=== PATIENT | female | born 1965 | race Caucasian/White ===

== ENCOUNTER → 2023-01-19 | Outpatient (CLI) | payer OTHER, SELFPAY ==
--- NOTE | 2023-01-19 13:07 | BI_ITS ---
MAMMOGRAPHY - BILATERAL SCREENING REASON FOR EXAM: Female, 57 years old. Routine annual screening examination. PERTINENT HISTORY: Grandmother with breast cancer. History of bilateral breast implants. TECHNIQUE: Digital bilateral breast rigoberto (3D mammographic acquisition) in the CC and MLO projections. 2-D mediolateral oblique (MLO) and craniocaudad (CC) views of both breasts were obtained. CAD: Full Field Digital Mammography with Computer Added Detection was performed. COMPARISON: Comparison is made with prior outside examination August 27, 2019 FINDINGS: Breast Composition: The breasts are heterogeneously dense, which may obscure small masses. There are no dominant masses or suspicious calcifications. Stable appearance of the bilateral breast implants. No other significant abnormalities are identified. There has been no significant change since the prior study. BI/SCRN MAMM (CAD)W/RIGOBERTO BILAT IMPRESSION: Stable bilateral screening mammogram. Yearly follow-up mammogram recommended. (A) ASSESSMENT CATEGORY: BIRADS Category 2: Benign. A letter regarding these results will be sent to the patient by the facility within 30 days. Approximately 10% of breast cancers are not detected by mammography. A normal mammogram should not delay biopsy of a clinically suspicious abnormality. [id number] Electronically Signed: Brayden Villatoro MD at 8:32 EDT ,
== END | disposition home or self-care (01) ==
LOC: OPBI 13:04
PROVIDERS: PCP Family Medicine; Referring Provider Family Medicine; Visit Provider Family Medicine
DX: Z12.31 Encounter for screening mammogram for malignant neoplasm of breast (principal)
CPT/HCPCS: 77063; 77067

== ENCOUNTER → 2025-08-28 | Outpatient (CLI) | payer OTHER, SELFPAY ==
--- NOTE | 2025-08-28 07:54 | BI_ITS ---
EXAM: SCRN MAMM (CAD)W/RIGOBERTO BILAT DATE: 08/28/2025 CLINICAL HISTORY: F, Age 60 y/o , SCREENING Grandmother with breast cancer. Bilateral breast implants. TECHNIQUE: Procedure Code: [id number] Modality: MG Procedure: SCRN MAMM (CAD)W/RIGOBERTO BILAT COMPARISON: Prior exam(s) dated January 19, 2023.. FINDINGS: TISSUE DENSITY: The breasts are heterogeneously dense, which may obscure small masses. Bilateral Breast Mammographic Findings: No significant masses, calcifications or other abnormalities are identified. Stable appearance of the bilateral breast implants. No suspicious masses, areas of developing architectural distortion, or suspicious calcifications. There has been no significant interval change. BI/SCRN MAMM (CAD)W/RIGOBERTO BILAT IMPRESSION: Stable bilateral screening mammogram. OVERALL FINAL ASSESSMENT BI-RADS 2: BENIGN RECOMMENDATION: Routine annual follow-up in 1 Year Additional Recommendation none A letter with findings and recommendations will be mailed to the patient. Reading Location: [place] [id number]
--- NOTE | 2025-08-28 07:54 | BI_ITS ---
EXAM: SCRN MAMM (CAD)W/RIGOBERTO BILAT DATE: 08/28/2025 CLINICAL HISTORY: F, Age 60 y/o , SCREENING Grandmother with breast cancer. Bilateral breast implants. TECHNIQUE: Procedure Code: [id number] Modality: MG Procedure: SCRN MAMM (CAD)W/RIGOBERTO BILAT COMPARISON: Prior exam(s) dated January 19, 2023.. FINDINGS: TISSUE DENSITY: The breasts are heterogeneously dense, which may obscure small masses. Bilateral Breast Mammographic Findings: No significant masses, calcifications or other abnormalities are identified. Stable appearance of the bilateral breast implants. No suspicious masses, areas of developing architectural distortion, or suspicious calcifications. There has been no significant interval change. BI/SCRN MAMM (CAD)W/RIGOBERTO BILAT IMPRESSION: Stable bilateral screening mammogram. OVERALL FINAL ASSESSMENT BI-RADS 2: BENIGN RECOMMENDATION: Routine annual follow-up in 1 Year Additional Recommendation none A letter with findings and recommendations will be mailed to the patient. Reading Location: [place] [id number]
--- OUTSIDE RECORDS SUMMARY | 2025-08-28 08:13 | XMS RPT_ITS | CCD ---
Author Organization [facility] Inform ion Partnership [facility] Care Team Providers Care Ruby Developer Name Role Phone COLEEN DEE Attending Unav ailKushal Maravilla Referring Unavailable Kushal Akhtar Attending Unavailable Kushal Akhtar Primary Care Unavailable Problems Problem Classification Problem Date Documented Da te Episodic/Chronic Other screening for suspected conditions (not mental disorders or infectious disease) (1 source) Encounter for screening mammogram for malignant neoplasm of breast; Translations: [Encounter for screening mammogram for malignant neoplasm of breast] Onset: 08-13-2025 Episodic Results Test Name Value Interpretation Reference Range Facility CBC (INCLUDES DIFF/PLT)on Basophils (Bld) [#/Vol] 0.042 10*3/uL Normal 0-200 [facility] Comment on above: Performed By: #### 1 0231, 5509, 3290 #### [facility] [place] [address] Multifocal Button Generator: Aly Butt MD Basophils/100 WBC (Bld) 0.7 % Normal [facility] Comment on above: Performed By: #### 1 023, 3556, 7122 #### [facility] [place] [address] Multifocal Button Generator: Aly Butt MD Eosinophils (Bld) [#/Vol] 0.132 10*3/uL Normal 15-500 [facility] Comment on above: Performed By: #### 1 023, 0287, 3798 #### [facility] [place] [address] Multifocal Button Generator: Aly Butt MD Eosinophils/100 WBC (Bld) 2.2 % Normal [facility] Comment on above: Performed By: #### 1 0231, 63, 7600 #### [facility] of [place] [address] Multifocal Button Generator: Aly Butt MD Erythrocyte distribution width (RBC) [Ratio] 13.3 % Normal 11.0-15.0 [facility] Comment on above: Performed By: #### 1 0231, 63, 7600 #### [facility] [place] [address] Multifocal Button Generator: Aly Butt MD Hematocrit (Bld) [Volume fraction] 42.7 % Normal 35.0-45.0 [facility] Comment on above: Performed By: #### 1 0231, 63, 7600 #### [facility] [place] [address] Multifocal Button Generator: Aly Butt MD Hemoglobin (Bld) [Mass/Vol] 13.4 g/dL Normal 11.7-15.5 [facility] Comment on above: Performed By: #### 1 023, 63, 7600 #### [facility] [place] [address] Multifocal Button Generator: Aly Butt MD Lymphocytes (Bld) [#/Vol] 1.83 10*3/uL Normal 850-3900 [facility] Comment on above: Performed By: #### 1 023, 63, 7600 #### [facility] [place] [address] Multifocal Button Generator: Aly Butt MD Lymphocytes/100 WBC (Bld) 30.5 % Normal [facility] Comment on above: Performed By: #### 1 0231, 63, 7600 #### [facility] [place] [address] Multifocal Button Generator: Aly Butt MD MCH (RBC) [Entitic mass] 30.4 pg Normal 27.0-33.0 [facility] Comment on above: Performed By: #### 1 0231, 63, 7600 #### [facility] [place] [address] Multifocal Button Generator: Aly Butt MD MCHC (RBC) [Mass/Vol] 31.4 g/dL Low 32.0-36.0 [facility] Comment on above: Result Comment: For adults, a slight decrease in the calculated MCHC value (in the range of 30 to 32 g/dL) is most likely not clinically significant; however, it should be interpreted with caution in correlation with other red cell parameters and the patient's clinical condition. Performed By: #### 1 023, 63, 7600 #### [facility] [place] [address] Multifocal Button Generator: Aly Butt MD MCV (RBC) [Entitic vol] 96.8 fL Normal 80.0-100.0 [facility] Comment on above: Performed By: #### 1 230, 63, 0 #### [facility] [place] [address] Multifocal Button Generator: Aly Butt MD Monocytes (Bld) [#/Vol] 0.486 10*3/uL Normal 200-950 [facility] Comment on above: Performed By: #### 1 230, 63, 7600 #### [facility] [place] [address] Multifocal Button Generator: Aly Butt MD Monocytes/100 WBC (Bld) 8.1 % Normal [facility] Comment on above: Performed By: #### 1 023, 63, 7600 #### [facility] [place] [address] Multifocal Button Generator: Aly Butt MD Neutrophils (Bld) [#/Vol] 3.51 10*3/uL Normal 8854-1383 [facility] Comment on above: Performed By: #### 1 023, 63, 7600 #### [facility] [place] [address] Multifocal Button Generator: Aly Butt MD Neutrophils/100 WBC (Bld) 58.5 % Normal [facility] Comment on above: Performed By: #### 1 0231, 6399, 7600 #### [facility] [place] [address] Multifocal Button Generator: Aly Butt MD Platelet mean volume (Bld) [Entitic vol] 9.6 fL Normal 7.5-12.5 [facility] Comment on above: Performed By: #### 1 0231, 6399, 7600 #### [facility] of [address], [address] [place] [address] Multifocal Button Generator: Aly Butt MD Platelets (Bld) [#/Vol] 253 10*3/uL Normal 140-400 [facility] Comment on above: Performed By: #### 1 0231, 63, 7600 #### [facility] [place] [address] Multifocal Button Generator: Aly Butt MD RBC (Bld) [#/Vol] 4.41 10*6/uL Normal 3.80-5.10 [facility] Comment on above: Performed By: #### 1 0231, 63, 7600 #### [facility] [place] [address] Multifocal Button Generator: Aly Butt MD WBC (Bld) [#/Vol] 6.0 10*3/uL Normal 3.8-10.8 [facility] Comment on above: Performed By: #### 1 0231, 6399, 7600 #### [facility] [place] [address] Multifocal Button Generator: Aly Butt MD [facility] 07-03-2025 Albumin [Mass/Vol] 4.4 g/dL Normal 3.6-5.1 [facility] Comment on above: Performed By: #### 1 0231, 6399, 7600 #### [facility] [place] [address] Multifocal Button Generator: Aly Butt MD Albumin/Globulin [Mass ratio] 1.8 {ratio} Normal 1.0-2.5 [facility] Comment on above: Performed By: #### 1 0231, 6399, 7600 #### [facility] of [address], [address] [place] [address] Multifocal Button Generator: Aly Butt MD ALP [Catalytic activity/Vol] 61 U/L Normal 37-153 [facility] Comment on above: Performed By: #### 1 0231, 63, 7600 #### [facility] of [address], [address] [place] [address] Multifocal Button Generator: Aly Butt MD ALT [Catalytic activity/Vol] 14 U/L Normal 6-29 [facility] Comment on above: Performed By: #### 1 0231, 63, 7600 #### [facility] of [address], [address] [place] [address] Multifocal Button Generator: Aly Butt MD AST [Catalytic activity/Vol] 29 U/L Normal 10-35 [facility] Comment on above: Performed By: #### 1 0231, 63, 7600 #### [facility] [place] [address] Multifocal Button Generator: Aly Butt MD Bilirubin [Mass/Vol] 0.4 mg/dL Normal 0.2-1.2 [facility] Comment on above: Performed By: #### 1 0231, 63, 7600 #### [facility] [place] [address] Multifocal Button Generator: Aly Butt MD BUN/CREATININE RATIO SEE NOTE: Normal 6-22 [facility] Comment on above: Result Comment: Not Reported: BUN and Creatinine are within reference range. Performed By: #### 1 0231, 6399, 7600 #### [facility] [place] [address] Multifocal Button Generator: Aly Butt MD Calcium [Mass/Vol] 9.7 mg/dL Normal 8.6-10.4 [facility] Comment on above: Performed By: #### 1 0231, 63, 7600 #### [facility] [place] [address] Multifocal Button Generator: Aly Butt MD Chloride [Moles/Vol] 105 mmol/L Normal 98-110 [facility] Comment on above: Performed By: #### 1 0231, 63, 7600 #### [facility] [place] [address] Multifocal Button Generator: Aly Butt MD CO2 [Moles/Vol] 26 mmol/L Normal 20-32 [facility] Comment on above: Performed By: #### 1 0231, 63, 7600 #### [facility] [place] [address] Multifocal Button Generator: Aly Butt MD Creatinine [Mass/Vol] 0.83 mg/dL Normal 0.50-1.03 [facility] Comment on above: Performed By: #### 1 0231, 63, 7600 #### [facility] [place] [address] Multifocal Button Generator: Aly Butt MD GFR/1.73 sq M.predicted among non-blacks MDRD (S/P/Bld) [Vol rate/Area] 82 mL/min/{1.73_m2} Normal > OR = 60 [facility] Comment on above: Performed By: #### 1 0231, 63, 7600 #### [facility] [place] [address] Multifocal Button Generator: Aly Butt MD Globulin (S) [Mass/Vol] 2.4 g/dL Normal 1.9-3.7 [facility] Comment on above: Performed By: #### 1 0231, 6399, 7600 #### [facility] [place] [address] Multifocal Button Generator: Aly Butt MD Glucose [Mass/Vol] 101 mg/dL High 65-99 [facility] Comment on above: Result Comment: Fasting reference interval For someone without known diabetes, a glucose value between 100 and 125 mg/dL is consistent with prediabetes and should be confirmed with a follow-up test. Performed By: #### 1 0231, 63, 7600 #### [facility] [address], [address] [place] [address] Multifocal Button Generator: Aly Butt MD Potassium [Moles/Vol] 4.9 mmol/L Normal 3.5-5.3 [facility] Comment on above: Performed By: #### 1 0231, 63, 7600 #### [facility] [place] [address] Multifocal Button Generator: Aly Butt MD Protein [Mass/Vol] 6.8 g/dL Normal 6.1-8.1 [facility] Comment on above: Performed By: #### 1 0231, 63, 7600 #### [facility] [place] [address] Multifocal Button Generator: Aly Butt MD Sodium [Moles/Vol] 141 mmol/L Normal 135-146 [facility] Comment on above: Performed By: #### 1 0231, 63, 7600 #### [facility] [place] [address] Multifocal Button Generator: Aly Butt MD Urea nitrogen [Mass/Vol] 17 mg/dL Normal 7-25 [facility] Comment on above: Performed By: #### 1 0231, 63, 7600 #### [facility] [place] [address] Multifocal Button Generator: Aly Butt MD LIPID PANEL, [facility] 06-14 Cholesterol [Mass/Vol] 220 mg/dL High <200 [facility] Comment on above: Order Comment: FASTI NG:YES FASTING: YES Performed By: #### 1 0231, 6399, 7600 #### [facility] [place] [address] Multifocal Button Generator: Aly Butt MD Cholesterol in HDL [Mass/Vol] 108 mg/dL Normal > OR = 50 [facility] Comment on above: Order Comment: FASTI NG:YES FASTING: YES Performed By: #### 1 0231, 1274, 0770 #### [facility] [address], [address] [place] [address] Multifocal Button Generator: Aly Butt MD Cholesterol in LDL [Mass/Vol] 98 mg/dL Normal [facility] Comment on above: Order Comment: FASTI NG:YES FASTING: YES Result Comment: Refe rence range: <100 Desirable range <100 mg/dL for primary prevention; <70 mg/dL for patients with CHD or diabetic patients with > or = 2 CHD risk factors. LDL-C is now calculated using the Capo calculation, which is a validated novel method providing better accuracy than the Friedewald equation in the estimation of LDL-C. Javier SMITH et al. USHA. 2013;310(19): 0928-1177 (http://education.YouFetch.Million Dollar Earth/faq/VLB775) Performed By: #### 1 0231, 6599, 1870 #### [facility] [address], [address] [place] [address] Multifocal Button Generator: Aly Butt MD Cholesterol.total/C holesterol in HDL [Mass ratio] 2.0 {ratio} Normal <5.0 [facility] Comment on above: Order Comment: FASTI NG:YES FASTING: YES Performed By: #### 1 0231, 3769, 9340 #### [facility] [address], [address] [place] [address] Multifocal Button Generator: Aly Butt MD NON HDL CHOLESTEROL 112 mg/dL (calc) Normal <130 [facility] Comment on above: Order Comment: FASTI NG:YES FASTING: YES Result Comment: For patients with diabetes plus 1 major ASCVD risk factor, treating to a non-HDL-C goal of <100 mg/dL (LDL-C of <70 mg/dL) is considered a therapeutic option. Performed By: #### 1 0231, 8599, 6510 #### [facility] [address], [address] [place] [address] Multifocal Button Generator: Aly Butt MD Triglyceride [Mass/Vol] 54 mg/dL Normal <150 [facility] Comment on above: Order Comment: FASTI NG:YES FASTING: YES Performed By: #### 1 0231, 6278, 4640 #### [facility] [address], [address] [place] [address] Multifocal Button Generator: Aly Butt MD CNNURSEon 03-31-2021 [facility] Nurse Visit (COVAMD) DAFNE TAVAREZ ([id number]) 1965 F Date Time Provider Department 03/31/21 1:15 PM COVID VACCINE [facility] During your visit today, we recorded the following information about you: Referring Provider: SOURAV GOLD JR [[id number]] Allergies As of Date: 03/31/2021 Noted Allergy Reaction PENICILLINS 12/09/2008 Comments: Patient states that when she used Penicillin her throat, mouth, and stomached burned. She was told by a physician that she should probably not use Penicillin. Date Reviewed: 02/02/2017 Reviewed by: Raoul Garcia - Fully Assessed Order(s):[facility] SARS-COV-2 VACCINE 2D DOSE APPT [[id number]] Order #: [id number] [facility] COVID-19 VACCINE [98490PXO] Order #: [id number] Prescriptions as of 03/31/2021 Sig: BUPROPION HCL ORAL Take 8 mg by mouth once daily* AUGMENTIN ORAL Take by mouth. DIAZEPAM 5 MG TABLET Take 1 tablet by mouth every * * DEXLANSOPRAZOLE 60 MG CAPSULE* Take 1 capsule by mouth once * Problem List As Of Date 03/31/2021 Noted Resolved Smoker [F17.200] 02/10/2016 Cervical stenosis of spine [M48.02] GERD (gastroesophageal reflux disease) [K21.9] Insomnia [G47.00] IBS (irritable bowel syndrome) [K58.9] Encounter Status:Closed by CLOSURE [employer], ADMINISTRATIVE on 04/01/21 [facility] CNNURSEon 03-10-2021 [facility] Nurse Visit (COVAMD) DAFNE TAVAREZ ([id number]) 1965 F Date Time Provider Department 03/10/21 1:15 PM COVID VACCINE [place] [facility]OV[facility] During your visit today, we recorded the following information about you: Referring Provider: SOURAV GOLD JR [[id number]] Allergies As of Date: 03/10/2021 Noted Allergy Reaction PENICILLINS 12/09/2008 Comments: Patient states that when she used Penicillin her throat, mouth, and stomached burned. She was told by a physician that she should probably not use Penicillin. Date Reviewed: 02/02/2017 Reviewed by: Raoul Garcia - Fully Assessed Order(s):[facility] COUNTS INCLUDE 234 BEDS AT THE [facility] COVID-19 VACCINE [[id number]] Order #: [id number] [facility] SARS-COV-2 VACCINE 2D DOSE APPT [[id number]] Order #: [id number] FUTURE Prescriptions as of 03/10/2021 Sig: BUPROPION HCL ORAL Take 8 mg by mouth once daily* AUGMENTIN ORAL Take by mouth. DIAZEPAM 5 MG TABLET Take 1 tablet by mouth every * * DEXLANSOPRAZOLE 60 MG CAPSULE* Take 1 capsule by mouth once * Problem List As Of Date 03/10/2021 Noted Resolved Smoker [F17.200] 02/10/2016 Cervical stenosis of spine [M48.02] GERD (gastroesophageal reflux disease) [K21.9] Insomnia [G47.00] IBS (irritable bowel syndrome) [K58.9] Encounter Status:Closed by CLOSURE [employer], ADMINISTRATIVE on 03/11/21 [facility] Initial Visit (Orthopaedic S urgery)on 05-18-2020 Initial Visit (Orthopaedic Surgery) Chief Complaint NPV for degenerative disc. -MM History of Present [id number] female with chief complaint of left leg pain. She has some lower back pain but the left leg bothers her much worse. The pain radiates down her thigh and occasionally goes below the knee. It began about 4 or 5 years ago. She has not had any formal treatment. She smokes a half a pack of cigarettes a day. She is otherwise in fairly good health. Review of Systems I reviewed the complete 30-point review of systems that was documented on the scanned patient intake form. All other systems are non-contributory except as defined in history of present illness. Active Problems Low back pain (724.2) (M54.5) Allergies No Known Drug Allergies Recorded By: Carlene Vasquez; 05/18/2020 11:45:45 AM Physical Exam Const: Well-appearing, well-nourished female in no distress. Eyes: Normal appearing sclera and conjunctiva, no jaundice, pupils normal in appearance. Resp: breathing comfortably, normal respiratory rate. CV: No upper or lower extremity edema. Musculoskeletal: Normal gait. Lumbar ROM is supple. Strength exam of the lower extremities reveals 5/5 strength in all major muscle groups. Negative straight leg raise bilaterally. Neuro: Sensation is intact and equal bilaterally. Deep tendon reflexes are normal and symmetric. No clonus. Skin: Intact without any lesions, normal turgor. Psych: Alert and oriented x3, normal mood and affect. Results/Data I personally reviewed a report of an MRI that she brought with her. This shows possible foraminal stenosis at L5-S1. Diagnoses/Problems Low back pain (724.2) (M54.5) Orders Low back pain Start: Meloxicam 15 MG Oral Tablet; TAKE 1 TABLET DAILY Rx By: Johnson Godoy; Dispense: 30 Days ; #:30 Tablet; Refill: 3;For: Low back pain; ROSALIND = N; Verified Transmission to [facility] [facility]; Last Updated By: Sherman Barragan; 05/18/2020 11:46:53 AM Physical Therapy - General Referral Evaluation and Treatment Evaluate AND Treat Status: Hold For - Scheduling,Retrospect jena Authorization Requested for: [id number] Ordered;For: Low back pain; Ordered By: Johnson Godoy Performed: Due: [id number]; Last Updated By: Carlene Vasquez; 05/18/2020 11:43:37 AM Provider Impressions 55-year-old female with foraminal stenosis and radicular pain. She has not had any formal treatment. I recommended smoking cessation first and foremost. In the meantime I started her on a course of physical therapy and gave her a prescription for meloxicam 15 mg daily. If she does not improve with these measures she should return to see me with a copy of her MRI on a disc. This note was dictated using speech recognition software and was not corrected for spelling or grammatical errors Signatures Electronically signed by : Johnson Godoy, ; May 27 2020 3:08PM EST (Author) [facility] [employer] ALLIED HEALTHon 04-24-2020 ALLIED HEALTH HNO ID: [id number] Author: Abigail Dangelo) Mary May Service: Radiology Author Type: Truck Jumper Type: [facility] Filed: 04/24/2020 3:51 PM Note Text: Radiology Service Progress Note PATIENT NAME: Dafne Tavarez DATE OF SERVICE: April 24, 2020 TIME: 3:51 PM PATIENT IDENTITY VERIFICATION COMPLETED USING TWO (2) IDENTIFIERS: Name and Date of confirmed by patient verbally and Name and Date of confirmed by identification band. FALL SCREENING: Has the patient had 2 falls in the last year or 1 fall with injury or currently using an Ambulatory Assistive Device (Walker, Cane, Wheelchair, Crutches, etc.)? No PATIENT GENDER DATA: Female. status: : No status: NO. PATIENT RELEVANT IMPLANT DATA REVIEWED: Yes RADIOLOGY DEPARTMENT: MR; Exam(s) Completed: Spine: Lumbar spine PERIPHERAL IV DATA: Not applicable SIGNED BY: DEYANIRA Tim April 24, 2020 3:51 PM [facility] MRI LUMBAR SPINE WO IVCONon 04-24-2020 MRI LUMBAR SPINE WO IVCON * * *Final Report* * * DATE OF EXAM: Apr 24 2020 4:37PM [facility] 0303 - MRI LUMBAR SPINE WO IVCON / PROCEDURE REASON: radiculopathy * * * * Physician Interpretation * * * * COMPARISON: 11/05/2015. HISTORY: Lumbar radiculopathy. TECHNIQUE: MRI lumbar spine without contrast. MQ: [id number] RESULT: MRI LUMBAR SPINE: Acute abnormality: None. Normal alignment, vertebral body height, marrow signal, central canal, thecal sac, spinal cord signal/caliber and cauda equina. No fracture/dislocation. Normal soft tissues. Intervertebral disks are decreased in height/signal with minimal posterior bulges and disc osteophyte indicating disc degeneration. No acute spine disease. T12 -- L1: Patent central canal. Patent bilateral neural foramina. L1 -- 2: Diffuse disc bulge with left paracentral annular tear and small protrusion. Patent central canal and neural foramen. L2 -- 3: Patent central canal. Patent bilateral neural foramina. L3 -- 4: Joint and disc degeneration. Patent central canal. Bilateral neural foraminal encroachment. L4 -- 5: Joint and disc degeneration. Patent central canal. Bilateral neural foraminal encroachment. L5 -- S1: Joint and disc degeneration. Right paracentral annular tear and small broad-based protrusion encroaching into subarticular recess without narrowing it Patent central canal. Bilateral neural foraminal encroachment. IMPRESSION: Stable mild lumbar spondylosis without canal or foraminal disease. COUNTING REFERENCE: Inferior most lumbar disc is taken as L5-S1. Structural anomalies: None. Electric Freight Car Operator: PSCB Transcribe Date/Time: Apr 24 2020 4:45P Dictated by : MACHO SMITH MD This examination was interpreted and the report reviewed and electronically signed by: MACHO SMITH MD on Apr 24 2020 4:49PM EST [id number] Normal [facility] Encounters Encounter Date Encounter Type Care Provider Facility Start: 08-28-2025 ambulatory Kushal Aranda ty:[facility] Start: 03-13-2023 End: 03-14-2023 ambulatory COLEEN MCGUIRE MD-DMD Facility:[id number] Start: 01-19-2023 End: 01-19-2023 ambulatory [facility] Work Phone: Start: 01-19-2023 End: 01-19-2023 Patient encounter procedure [facility]-Outpatient Breast Imaging Procedures Date Procedure Procedure Detail Performing Clinician Start: 09-14-2020 Follow-up visit Plan of Treatment Date Care Activity Detail Author Start: 01-19-2023 MG Breast - bilatera l Screening [facility] Start: 01-19-2023 Screening mammography SCRN MARKUS M (CAD)W/RIGOBERTO BILAT [facility] Payers Date Payer Category Payer Unknown [id number] 2008 Self-pay 1965 Unknown [id number] Private Health Insurance [facility] [id number] Unknown [id number] Social History Date Type Detail Facility Tobacco smoking stat [facility] Unknown if ever smoked [facility] Work Phone: Start: 1965 Sex Assigned At Female [facility] Evaluation note Note Date & Type Note Facility Evaluation note No assessment information availa ble [facility] Work Phone: Summary Purpose Family History No Family History Records FoundNo Family History Records FoundNo Family History Records FoundNo Family History Records FoundNo Family History Records Found Advance Directives No Advanced Directives Records FoundNo Advanced Directives Records FoundNo Advanced Directives Records FoundNo Advanced Directives Records FoundNo Advanced Directives Records Found Chief Complaint and Reason for Visit Chief Complaint SCREENING Additional Source Comments INFORMATION SOURCE (unrecogn ized section and content) DATE CREATED AUTHOR 09/16/2020 [employer] DATE CREATED AUTHOR AUTHOR'S ORGANIZ ATION 04/07/2021 [facility] DATE CREATED AUTHOR AUTHOR'S ORGANIZ ATION 03/14/2023 [facility] DATE CREATED AUTHOR AUTHOR'S ORGANIZ ATION 07/05/2025 [facility] DATE CREATED AUTHOR AUTHOR'S ORGANIZ ATION 08/18/2025 [facility] Care Teams (unrecognized sec tion and content) Team Status: Active Member Role Status Dates Dr. Kylie Hill MD Family Provider Active Dr. Kushal Akhtar MD Primary Care Provider Active Team Status: Inactive Member Role Status Dates Dr. Kushal Akhtar MD Primary Care P raysa, Attending Provider, Referring Provider Active Goals (unrecognized section and content) Goals may be documented in a n alternate section FOR RECORDS PERTAINING TO PATIENTS WHO ARE OR HAVE BEEN ENROLLED IN A CHEMICAL DEPENDENCY/SUBSTANCEABUSE PROGRAM, SOME INFORMATION MAY BE OMITTED. This clinical summary was aggregated from multiple sources. Caution should be exercised in using it in the provision of clinical care. This summary normalizes information from multiple sources, and as a consequence, information in this document may materially change the coding, format and clinical context of patient data. In addition, data may be omitted in some cases. CLINICAL DECISIONS SHOULD BE BASED ON THE PRIMARY CLINICAL RECORDS. [facility] mydala [facility]. provides no warranty or guarantee of the accuracy or completeness of information in this document.
--- OUTSIDE RECORDS SUMMARY | 2025-08-28 08:13 | XMS RPT_ITS | CCD ---
Author Organization [facility] Inform ion Partnership [facility] Care Team Providers Care Orthodontic Technician Name Role Phone COLEEN DEE Attending Unav [...] on above: Performed By: #### 1 0231, 7082, 3934 #### [facility] [place] [address] Asset Protection Detective: Aly Butt MD Basophils/100 WBC (Bld) 0.7 % Normal [facility] Comment on above: Performed By: #### 1 023, 9511, 4803 #### [facility] [place] [address] Asset Protection Detective: Aly Butt MD Eosinophils (Bld) [#/Vol] 0.132 10*3/uL Normal 15-500 [facility] Comment on above: Performed By: #### 1 023, 9272, 7210 #### [facility] [place] [address] Asset Protection Detective: Aly Butt MD Eosinophils/100 WBC (Bld) 2.2 % Normal [facility] Comment on above: Performed By: #### 1 0231, 63, 7600 #### [facility] of [place] [address] Asset Protection Detective: Aly Butt MD Erythrocyte distribution width (RBC) [Ratio] 13.3 % Normal 11.0-15.0 [facility] Comment on above: Performed By: #### 1 0231, 63, 7600 #### [facility] [place] [address] Asset Protection Detective: Aly Butt MD Hematocrit (Bld) [Volume fraction] 42.7 % Normal 35.0-45.0 [facility] Comment on above: Performed By: #### 1 0231, 63, 7600 #### [facility] [place] [address] Asset Protection Detective: Aly Butt MD Hemoglobin (Bld) [Mass/Vol] 13.4 g/dL Normal 11.7-15.5 [facility] Comment on above: Performed By: #### 1 023, 63, 7600 #### [facility] [place] [address] Asset Protection Detective: Aly Butt MD Lymphocytes (Bld) [#/Vol] 1.83 10*3/uL Normal 850-3900 [facility] Comment on above: Performed By: #### 1 023, 63, 7600 #### [facility] [place] [address] Asset Protection Detective: Aly Butt MD Lymphocytes/100 WBC (Bld) 30.5 % Normal [facility] Comment on above: Performed By: #### 1 0231, 63, 7600 #### [facility] [place] [address] Asset Protection Detective: Aly Butt MD MCH (RBC) [Entitic mass] 30.4 pg Normal 27.0-33.0 [facility] Comment on above: Performed By: #### 1 0231, 63, 7600 #### [facility] [place] [address] Asset Protection Detective: Aly Butt MD MCHC (RBC) [Mass/Vol] 31.4 [...] 023, 63, 7600 #### [facility] [place] [address] Asset Protection Detective: Aly Butt MD MCV (RBC) [Entitic vol] 96.8 fL Normal 80.0-100.0 [facility] Comment on above: Performed By: #### 1 230, 63, 0 #### [facility] [place] [address] Asset Protection Detective: Aly Butt MD Monocytes (Bld) [#/Vol] 0.486 10*3/uL Normal 200-950 [facility] Comment on above: Performed By: #### 1 230, 63, 7600 #### [facility] [place] [address] Asset Protection Detective: Aly Butt MD Monocytes/100 WBC (Bld) 8.1 % Normal [facility] Comment on above: Performed By: #### 1 023, 63, 7600 #### [facility] [place] [address] Asset Protection Detective: Aly Butt MD Neutrophils (Bld) [#/Vol] 3.51 10*3/uL Normal 6355-0907 [facility] Comment on above: Performed By: #### 1 023, 63, 7600 #### [facility] [place] [address] Asset Protection Detective: Aly Butt MD Neutrophils/100 WBC (Bld) 58.5 % Normal [facility] Comment on above: Performed By: #### 1 0231, 6399, 7600 #### [facility] [place] [address] Asset Protection Detective: Aly Butt MD Platelet mean volume (Bld) [Entitic vol] 9.6 fL Normal 7.5-12.5 [facility] Comment on above: Performed By: #### 1 0231, 6399, 7600 #### [facility] of [address], [address] [place] [address] Asset Protection Detective: Aly Butt MD Platelets (Bld) [#/Vol] 253 10*3/uL Normal 140-400 [facility] Comment on above: Performed By: #### 1 0231, 63, 7600 #### [facility] [place] [address] Asset Protection Detective: Aly Butt MD RBC (Bld) [#/Vol] 4.41 10*6/uL Normal 3.80-5.10 [facility] Comment on above: Performed By: #### 1 0231, 63, 7600 #### [facility] [place] [address] Asset Protection Detective: Aly Butt MD WBC (Bld) [#/Vol] 6.0 10*3/uL Normal 3.8-10.8 [facility] Comment on above: Performed By: #### 1 0231, 6399, 7600 #### [facility] [place] [address] Asset Protection Detective: Aly Butt MD [facility] 07-03-2025 Albumin [Mass/Vol] 4.4 g/dL Normal 3.6-5.1 [facility] Comment on above: Performed By: #### 1 0231, 6399, 7600 #### [facility] [place] [address] Asset Protection Detective: Aly Butt MD Albumin/Globulin [Mass ratio] 1.8 {ratio} Normal 1.0-2.5 [facility] Comment on above: Performed By: #### 1 0231, 6399, 7600 #### [facility] of [address], [address] [place] [address] Asset Protection Detective: Aly Butt MD ALP [Catalytic activity/Vol] 61 U/L Normal 37-153 [facility] Comment on above: Performed By: #### 1 0231, 63, 7600 #### [facility] of [address], [address] [place] [address] Asset Protection Detective: Aly Butt MD ALT [Catalytic activity/Vol] 14 U/L Normal 6-29 [facility] Comment on above: Performed By: #### 1 0231, 63, 7600 #### [facility] of [address], [address] [place] [address] Asset Protection Detective: Aly Butt MD AST [Catalytic activity/Vol] 29 U/L Normal 10-35 [facility] Comment on above: Performed By: #### 1 0231, 63, 7600 #### [facility] [place] [address] Asset Protection Detective: Aly Butt MD Bilirubin [Mass/Vol] 0.4 mg/dL Normal 0.2-1.2 [facility] Comment on above: Performed By: #### 1 0231, 63, 7600 #### [facility] [place] [address] Asset Protection Detective: Aly Butt MD BUN/CREATININE RATIO SEE NOTE: Normal 6-22 [facility] Comment on above: Result Comment: Not Reported: BUN and Creatinine are within reference range. Performed By: #### 1 0231, 6399, 7600 #### [facility] [place] [address] Asset Protection Detective: Aly Butt MD Calcium [Mass/Vol] 9.7 mg/dL Normal 8.6-10.4 [facility] Comment on above: Performed By: #### 1 0231, 63, 7600 #### [facility] [place] [address] Asset Protection Detective: Aly Butt MD Chloride [Moles/Vol] 105 mmol/L Normal 98-110 [facility] Comment on above: Performed By: #### 1 0231, 63, 7600 #### [facility] [place] [address] Asset Protection Detective: Aly Butt MD CO2 [Moles/Vol] 26 mmol/L Normal 20-32 [facility] Comment on above: Performed By: #### 1 0231, 63, 7600 #### [facility] [place] [address] Asset Protection Detective: Aly Butt MD Creatinine [Mass/Vol] 0.83 mg/dL Normal 0.50-1.03 [facility] Comment on above: Performed By: #### 1 0231, 63, 7600 #### [facility] [place] [address] Asset Protection Detective: Aly Butt MD GFR/1.73 sq M.predicted among non-blacks MDRD (S/P/Bld) [Vol rate/Area] 82 mL/min/{1.73_m2} Normal > OR = 60 [facility] Comment on above: Performed By: #### 1 0231, 63, 7600 #### [facility] [place] [address] Asset Protection Detective: Aly Butt MD Globulin (S) [Mass/Vol] 2.4 g/dL Normal 1.9-3.7 [facility] Comment on above: Performed By: #### 1 0231, 6399, 7600 #### [facility] [place] [address] Asset Protection Detective: Aly Butt MD Glucose [Mass/Vol] 101 mg/dL High 65-99 [facility] Comment on above: Result Comment: Fasting reference interval For someone without known diabetes, a glucose value between 100 and 125 mg/dL is consistent with prediabetes and should be confirmed with a follow-up test. Performed By: #### 1 0231, 63, 7600 #### [facility] [address], [address] [place] [address] Asset Protection Detective: Aly Butt MD Potassium [Moles/Vol] 4.9 mmol/L Normal 3.5-5.3 [facility] Comment on above: Performed By: #### 1 0231, 63, 7600 #### [facility] [place] [address] Asset Protection Detective: Aly Butt MD Protein [Mass/Vol] 6.8 g/dL Normal 6.1-8.1 [facility] Comment on above: Performed By: #### 1 0231, 63, 7600 #### [facility] [place] [address] Asset Protection Detective: Aly Butt MD Sodium [Moles/Vol] 141 mmol/L Normal 135-146 [facility] Comment on above: Performed By: #### 1 0231, 63, 7600 #### [facility] [place] [address] Asset Protection Detective: Aly Butt MD Urea nitrogen [Mass/Vol] 17 mg/dL Normal 7-25 [facility] Comment on above: Performed By: #### 1 0231, 63, 7600 #### [facility] [place] [address] Asset Protection Detective: Aly Butt MD LIPID PANEL, [facility] 06-14 Cholesterol [Mass/Vol] 220 mg/dL High <200 [facility] Comment on above: Order Comment: FASTI NG:YES FASTING: YES Performed By: #### 1 0231, 6399, 7600 #### [facility] [place] [address] Asset Protection Detective: Aly Butt MD Cholesterol in HDL [Mass/Vol] 108 mg/dL Normal > OR = 50 [facility] Comment on above: Order Comment: FASTI NG:YES FASTING: YES Performed By: #### 1 0231, 6711, 6770 #### [facility] [address], [address] [place] [address] Asset Protection Detective: Aly Butt MD Cholesterol in LDL [Mass/Vol] 98 mg/dL Normal [facility] Comment on above: Order Comment: FASTI NG:YES FASTING: YES Result Comment: Refe rence range: <100 Desirable range <100 mg/dL for primary prevention; <70 mg/dL for patients with CHD or diabetic patients with > or = 2 CHD risk factors. LDL-C is now calculated using the aCpo calculation, which is a validated novel method providing better accuracy than the Friedewald equation in the estimation of LDL-C. Javier SMITH et al. USHA. 2013;310(19): 7898-9419 (http://education.[employer]/faq/STZ182) Performed By: #### 1 0231, 6025, 8170 #### [facility] [address], [address] [place] [address] Asset Protection Detective: Aly Butt MD Cholesterol.total/C holesterol in HDL [Mass ratio] 2.0 {ratio} Normal <5.0 [facility] Comment on above: Order Comment: FASTI NG:YES FASTING: YES Performed By: #### 1 0231, 1338, 7840 #### [facility] [address], [address] [place] [address] Asset Protection Detective: Aly Butt MD NON HDL CHOLESTEROL 112 mg/dL (calc) Normal <130 [facility] Comment on above: Order Comment: FASTI NG:YES FASTING: YES Result Comment: For patients with diabetes plus 1 major ASCVD risk factor, treating to a non-HDL-C goal of <100 mg/dL (LDL-C of <70 mg/dL) is considered a therapeutic option. Performed By: #### 1 0231, 2484, 2390 #### [facility] [address], [address] [place] [address] Asset Protection Detective: Aly Butt MD Triglyceride [Mass/Vol] 54 mg/dL Normal <150 [facility] Comment on above: Order Comment: FASTI NG:YES FASTING: YES Performed By: #### 1 0231, 2143, 3970 #### [facility] [address], [address] [place] [address] Asset Protection Detective: Aly Butt MD CNNURSEon 03-31-2021 [facility] Nurse Visit (COVAMD) DAFNE TAVAREZ ([id number]) 1965 F Date Time Provider Department 03/31/21 1:[address] [facility] During your visit today, we recorded the following information about you: Referring Provider: SOURAV GOLD JR [[id number]] Allergies As of Date: 03/31/2021 Noted Allergy Reaction PENICILLINS 12/09/2008 Comments: Patient states that when she used Penicillin her throat, mouth, and stomached burned. She was told by a physician that she should probably not use Penicillin. Date Reviewed: 02/02/2017 Reviewed by: Raoul Garcia - Fully Assessed Order(s):[facility] SARS-COV-2 VACCINE 2D DOSE APPT [[id number]] Order #: [id number] [employer] [facility] COVID-19 VACCINE [[id number]] Order #: [id number] Prescriptions as of 03/31/2021 Sig: BUPROPION HCL [...] bowel syndrome) [K58.9] Encounter Status:Closed by CLOSURE [employer], ADMINISTRATIVE on 04/01/21 [facility] CNNURSEon 03-10-2021 [facility] Nurse Visit (COVAMD) DAFNE TAVAREZ ([id number]) 1965 F Date Time Provider Department 03/10/21 1:15 PM COVID VACCINE [facility]OV[facility] During your visit today, we recorded the following information about you: Referring Provider: SOURAV GOLD JR [[id number]] Allergies As of Date: 03/10/2021 Noted Allergy Reaction PENICILLINS 12/09/2008 Comments: Patient states that when she used Penicillin her throat, mouth, and stomached burned. She was told by a physician that she should probably not use Penicillin. Date Reviewed: 02/02/2017 Reviewed by: Raoul Garcia - Fully Assessed Order(s):[employer] [facility] COVID-19 VACCINE [[id number]] Order #: [id number] [facility] SARS-COV-2 VACCINE 2D DOSE APPT [[id number]] Order #: [id number] FUTURE Prescriptions as of 03/10/2021 Sig: BUPROPION [...] bowel syndrome) [K58.9] Encounter Status:Closed by CLOSURE [employer], ADMINISTRATIVE on 03/11/21 [facility] Initial Visit (Orthopaedic S urgery)on 05-18-2020 Initial Visit (Orthopaedic Surgery) Chief Complaint NPV for degenerative disc. -MM History of Present [id number] female with chief complaint of left leg [...] pain; ROSALIND = N; Verified Transmission to [facility] [facility]; Last Updated By: Sherman Barragan; 05/18/2020 11:46:53 AM Physical Therapy - General Referral Evaluation and Treatment Evaluate AND Treat Status: Hold For - Scheduling,Retrospect jena Authorization Requested for: [id number] Ordered;For: Low back pain; Ordered By: Johnson Godoy Performed: Due: [id number]; Last Updated By: Carlene Vasquez; 05/18/2020 11:43:37 [...] ; May 27 2020 3:08PM EST (Author) [facility] ALLIED HEALTHon 04-24-2020 ALLIED HEALTH HNO ID: [id number] Author: Abigail Dangelo) Mary May Service: Radiology Author Type: Cable Rigger Type: Allied Health Filed: 04/24/2020 3:51 PM [...] DEYANIRA Tim April 24, 2020 3:51 PM [facility] MRI LUMBAR SPINE WO IVCONon 04-24-2020 MRI LUMBAR SPINE WO IVCON * * *Final Report* * * DATE OF EXAM: Apr 24 2020 4:37PM [facility] 0303 - MRI LUMBAR SPINE WO IVCON [...] is taken as L5-S1. Structural anomalies: None. Gypsum Calciner: PSCB Transcribe Date/Time: Apr 24 2020 4:45P Dictated by : MACHO SMITH MD This examination was interpreted and the report reviewed and electronically signed by: MACHO SMITH MD on Apr 24 2020 4:49PM EST [id number] Normal [facility] Encounters Encounter Date Encounter Type Care Provider Facility Start: 08-28-2025 ambulatory Kushal Aranda ty:[facility] Start: 03-13-2023 End: 03-14-2023 ambulatory COLEEN MCGUIRE MD-DMD Facility:[id number] Start: 01-19-2023 End: 01-19-2023 ambulatory [facility] Work Phone: Start: 01-19-2023 End: 01-19-2023 Patient encounter procedure [facility]-Outpatient Breast Imaging Procedures Date Procedure Procedure Detail Performing Clinician Start: 09-14-2020 Follow-up visit Plan of Treatment Date Care Activity Detail Author Start: 01-19-2023 MG Breast - bilatera l Screening [facility] Start: 01-19-2023 Screening mammography SCRN MARKUS M (CAD)W/RIGOBERTO BILAT [facility] Payers Date Payer Category Payer Unknown [id number] 2008 Self-pay 1965 Unknown [id number] Private Health Insurance [facility] [id number] Unknown [id number] Social History Date Type Detail Facility Tobacco smoking stat [facility] Unknown if ever smoked [facility] Work Phone: Start: 1965 Sex Assigned At Female [facility] Evaluation note Note Date & Type Note Facility Evaluation note No assessment information availa ble [facility] Work Phone: Summary Purpose Family History [...] section and content) DATE CREATED AUTHOR 09/16/2020 [facility] DATE CREATED AUTHOR AUTHOR'S ORGANIZ ATION 04/07/2021 [facility] DATE CREATED AUTHOR AUTHOR'S ORGANIZ ATION 03/14/2023 [facility] DATE CREATED AUTHOR AUTHOR'S ORGANIZ ATION 07/05/2025 [facility] DATE CREATED AUTHOR AUTHOR'S ORGANIZ ATION 08/18/2025 [facility] Care Teams (unrecognized sec tion and [...] BE BASED ON THE PRIMARY CLINICAL RECORDS. [facility] [employer] [facility]. provides no warranty or guarantee of the accuracy or completeness of information in this document.
--- NOTE | 2025-08-28 08:49 | RAD_ITS ---
PROCEDURE: CERV SPINE 2 OR 3 VIEWS 08/28/2025 REASON FOR EXAM: CERVICALGIA TECHNIQUE: Procedure Code: RADSPCL Modality: DX Procedure: CERV SPINE 2 OR 3 VIEWS COMPARISON: None FINDINGS: ACDF fusion hardware is present from C5 through C7. There is mild to moderate C4-C5 degenerative change with mild anterior osteophytosis. Vertebral body heights are preserved. The prevertebral soft tissues are unremarkable. The facets are well aligned. C2 and C1-C2 articulations are intact. RAD/Cerv Spine 2 or 3 Views IMPRESSION: 1. Postsurgical changes from C5 through C7 ACDF. No acute osseous injury. Reading Location: [facility]
--- NOTE | 2025-08-28 08:49 | RAD_ITS ---
PROCEDURE: CERV SPINE 2 OR 3 VIEWS 08/28/2025 REASON FOR EXAM: CERVICALGIA TECHNIQUE: Procedure Code: RADSPCL Modality: DX Procedure: CERV SPINE 2 OR 3 VIEWS COMPARISON: None FINDINGS: ACDF fusion hardware is present from C5 through C7. There is mild to moderate C4-C5 degenerative change with mild anterior osteophytosis. Vertebral body heights are preserved. The prevertebral soft tissues are unremarkable. The facets are well aligned. C2 and C1-C2 articulations are intact. RAD/Cerv Spine 2 or 3 Views IMPRESSION: 1. Postsurgical changes from C5 through C7 ACDF. No acute osseous injury. Reading Location: [facility]
== END | disposition home or self-care (01) ==
PROVIDERS: PCP Family Medicine; Referring Provider Family Medicine; Visit Provider Family Medicine
DX: Z12.31 Encounter for screening mammogram for malignant neoplasm of breast (principal); Z80.3 Family history of malignant neoplasm of breast; M54.2 Cervicalgia
CPT/HCPCS: 72040; 77063; 77067